=== PATIENT | male | born 1985 | race Caucasian/White ===

== ENCOUNTER 2016-08-25 19:20 | Emergency (ER) | payer OTHER ==
[~2016-08-25] VITALS: Ht 177.8 cm; Wt 63.5 kg
[2016-08-25 19:39] VITALS: BP 143/82
[2016-08-25 19:57] LABS: ABSOLUTE BASOPHIL COUNT 0 /CUMM (0.0-0.2); ABSOLUTE EOSINOPHIL COUNT 0.1 /CUMM (0.0-0.7); ABSOLUTE GRANULOCYTE CT 7.3 /CUMM (1.4-6.5); ABSOLUTE LYMPH COUNT 1.8 /CUMM (1.2-3.4); ABSOLUTE MONOCYTE COUNT 1.1 /CUMM (0.10-0.60); BASOPHIL % 0.3 % (0.0-2.0); EOSINOPHIL % 0.6 % (0-5); HEMATOCRIT 45.3 % (42-52); MEAN CORPUSCULAR HGB 28.7 PG (27.0-31.0); MEAN CORPUSCULAR HGB CONC 33.8 G/DL (33.0-37.0); MEAN PLATELET VOLUME 9.9 FL (7.4-10.4); PLATELET COUNT 221 /CUMM (130-400); RBC DISTRIBUTION WIDTH 13.8 % (11.5-14.5); RED BLOOD CELL CT 5.33 /CUMM (4.70-6.10); WHITE BLOOD CELL COUNT 10.3 /CUMM (4.8-10.8)
--- NOTE | 2016-08-25 21:01 | ED GENERAL ADULT ---
History of Present Illness General Chief Complaint: General Adult Stated Complaint: WEAK,NAUSEA, SLEEPING ALL DAY Source: patient, family Exam Limitations: no limitations Vital Signs & Intake/Output Vital Signs & Intake/Output Vital Signs Date Time Temp Pulse Resp B/P B/P Pulse O2 O2 Flow FiO2 Mean Ox Delivery Rate 08/25 1939 98.8 92 16 143/82 97 Room Air ED Intake and Output 08/26 0000 08/25 1200 Intake Total 1000 Output Total Balance 1000 Intake, IV 1000 Patient 140 lb Weight Weight Reported by Patient Measurement Method Allergies Coded Allergies: NO KNOWN ALLERGIES (03/16/11) Reconcile Medications Amoxicillin 500 MG TABLET 1 TAB PO TID pharyngitis Triage Note: TRIAGE: FEELING RUN DOWN AND FATIGUED X3 DAYS AND DECREASED APPETITE. DENIES N/V/D AND DENIES SYMPTOMS. DENIES PSYCHOSOCIAL STRESSORS OR CHANGES IN ROUTINE. AFEBRILE SENT FROM TRIAGE Triage Nurses Notes Reviewed? yes Onset: Abrupt Duration: day(s):, week(s): (2-3), constant, continues in ED Timing: single episode today Severity: mild, moderate Severity Numbers: 4 No Modifying Factors: none HPI: 31-year-old male with no sig past medical history presents complaining of fatigue, nausea, and sore throat for the past 2 or 3 days. Patient reports that pain is worse swallowing but he is tolerating some fluids. He reports that his appetite has been decreasing the past few days due to nausea. Not been eating or drinking other than coffee. Pain is rated as a 4 out of 10 and is worse with swallowing. No other associated symptoms or sick contacts. No recent travel or recent antibiotic use. He denies any abdominal pain, fevers, back pain, urinary symptoms, coughing, shortness of breath, chest pain, rashes, tick bites or shortness of breath. He has not taken any medicine for the pain. (ETTA TURNER PA-C) Past History Travel History Traveled to [place] past 21 day No Medical History Any Pertinent Medical History? see below for history Neurological: NONE EENT: NONE Cardiovascular: NONE Respiratory: NONE Gastrointestinal: NONE Hepatic: NONE Renal: NONE Musculoskeletal: NONE Psychiatric: NONE Endocrine: NONE Blood Disorders: NONE Cancer(s): NONE Surgical History Surgical History: none Psychosocial History What is your primary language Kyrgyz Tobacco Use: Current Daily Use Daily Tobacco Use Amount/Type: Smokeless tobacco daily ETOH Use: denies use Illicit Drug Use: denies illicit drug use Family History Hx Contributory? Yes (ETTA TURNER PA-C) Review of Systems Review of Systems Constitutional: Reports: see HPI, malaise, weakness. EENTM: Reports: see HPI, throat pain. Respiratory: Reports: no symptoms. Cardiovascular: Reports: no symptoms. GI: Reports: see HPI, nausea. Genitourinary: Reports: no symptoms. Musculoskeletal: Reports: no symptoms. Skin: Reports: no symptoms. Neurological/Psychological: Reports: no symptoms. Hematologic/Endocrine: Reports: no symptoms. Immunologic/Allergic: Reports: no symptoms. All Other Systems: Reviewed and Negative (ETTA TURNER PA-C) Physical Exam Physical Exam General Appearance: well developed/nourished, no apparent distress, alert, awake , anxious Head: atraumatic, normal appearance Eyes: Bilateral: normal appearance, PERRL, EOMI. Ears, Nose, Throat: normal ENT inspection, hearing grossly normal, pharyngeal erythema, tonsillar exudate Neck: normal inspection, supple, full range of motion, no midline tenderness Respiratory: normal breath sounds, chest non-tender, no respiratory distress, lungs clear Cardiovascular: regular rate/rhythm, normal peripheral pulses Peripheral Pulses: 2+ dorsalis pedis (R), 2+ dorsalis pedis (L) Gastrointestinal: normal bowel sounds, soft, non-tender, no organomegaly Back: normal inspection, normal range of motion, no vertebral tenderness Extremities: normal inspection, normal capillary refill, normal range of motion, no edema Neurologic/Psych: no motor/sensory deficits, awake, alert, oriented x 3, normal gait, normal mood/affect Reflexes: 2+: knee (R), knee (L). Skin: intact, normal color, warm/dry Lymphatic: no anterior cervical tomy Core Measures ACS in differential dx? No CVA/TIA Diagnosis: No Severe Sepsis Present: No Septic Shock Present: No (ETTA TURNER PA-C) Progress Differential Diagnoses I considered the following diagnoses in my evaluation of the patient: [Strep throat, Lyme disease, mono, influenza, viral gastroenteritis, viral upper respiratory infection, or tonsillar abscess] Plan of Care: Orders Procedure Date/time Status THROAT CULTURE W/QUICK STREP 08/25 2105 Active URINALYSIS 08/25 2105 Active MONOSPOT TEST 08/25 2105 Active LYME TITRE 08/25 2105 Active THYROID STIMULATING HORMONE 08/25 1940 Complete FREE T4 08/25 1940 Complete COMPREHENSIVE METABOLIC PANEL 08/25 1940 Complete CBC WITHOUT DIFFERENTIAL 08/25 1940 Complete Laboratory Tests 08/25/162119: Lyme Disease Antibody Pending, Infectious Mathews Titer NEGATIVE 08/25/161943: Anion Gap 12, Estimated GFR > 60, BUN/Creatinine Ratio 7.7, Glucose 129 H, Calcium 9.5, Total Bilirubin 1.2, AST 21, ALT 44, Alkaline Phosphatase 100, Total Protein 7.5, Albumin 4.4, Globulin 3.1, Albumin/Globulin Ratio 1.4, TSH 1.130, Free T4 1.20, CBC w Diff NO MAN DIFF REQ, RBC 5.33, MCV 85.0, MCH 28.7, RDW 13.8, MPV 9.9, Gran % 71.0, Lymphocytes % 17.7 L, Monocytes % 10.4 H, Eosinophils % 0.6, Basophils % 0.3, Absolute Granulocytes 7.3 H, Absolute Lymphocytes 1.8, Absolute Monocytes 1.1 H, Absolute Eosinophils 0.1, Absolute Basophils 0, PUBS MCHC 33.8 Patient's throat appears infected with erythema and exudate on the right tonsil. Rapid strep and mono ordered. Patient will be given IV Toradol and IV Zofran and a liter of normal saline. Basic blood work will be drawn and will follow up on results. He is nontoxic appearing. He will likely need abx for treatment of a throat infection. 10:14 PM labs are back sodium is 136. Creatinine is 1.3. Patient will be given another liter of normal saline. He is feeling better after Toradol and Zofran. Otherwise blood work is within normal limits. He will be treated with amoxicillin 500 mg twice a day for 10 days for bacterial pharyngitis. He has an appointment on Saturday with his primary care doctor. Discussed all results of today's visit with the patient and family. He is afebrile and nontoxic appearing at discharge and agrees the plan. (JOHNNY GREENBERG,ETTA) Initial ED EKG: none (JOHNNY GREENBERG,ETTA) Departure Departure Disposition: HOME OR SELF CARE Condition: Stable Clinical Impression Primary Impression: Sore throat Referrals: PATIENT HAS NO PRIMARY CARE DR (PCP/Family) Additional Instructions: Rest and drink plenty of fluids. Gargle saltwater, drink warm tea, use throat lozenges and Tylenol or ibuprofen to soothe your throat. Take antibiotics as directed for the full course and take a probiotic to replace healthy bacteria. follow-up with your primary care doctor this coming week to review all results of today's visit. Return to the emergency department with any concerns. Please go over all results of today's visit with your primary care doctor. Contact your primary care doctor to let them know you were here in the emergency room. There may be nonspecific findings which may not be related to your visit today here in the emergency room but may require further evaluation and chronic monitoring by your primary care doctor. If you had a laceration today the chance of foreign body always remains. You should follow-up with your primary care doctor for recheck in 3-5 days for a wound check. If you had an x-ray done there is a chance that a fracture could have been missed on initial read and you should follow-up with your primary care doctor for repeat x-rays if symptoms persist. If your blood pressure was elevated here in the emergency room please have rechecked by her primary care doctor within the next 48 hours by your primary care doctor. If you were prescribed a narcotic here in the emergency room or any type of controlled substances you're not allowed to drive while taking this medication or operate any type of heavy machinery. Narcotics can make you feel lightheaded dizziness nausea and can cause constipation. You may need to chart picker a stool softener. Thank you for choosing [facility] emergency room. Please return to the emergency room immediately if you have any other concerns worsening of symptoms. Departure Forms: Customer Survey General Discharge Information Prescriptions: Current Visit Scripts Amoxicillin 1 TAB PO TID #20 TAB (ETTA TURNER PA-C) PA/HELIARC WELDER Co-Sign Statement Statement: ED Attending supervision documentation- [] I saw and evaluated the patient. I have also reviewed all the pertinent lab results and diagnostic results. I agree with the findings and the plan of care as documented in the PA's/HELIARC WELDER's documentation. [X] I have reviewed the ED Record and agree with the PA's/HELIARC WELDER's documentation. [] Additions or exceptions (if any) to the PAs/HELIARC WELDER's note and plan are summarized below: [] (MADHURI WISDOM,AHSAN Jeronimo) Critical Care Note Critical Care Note Critical Care Time: non-applicable (JOHNNY GREENBERG,ETTA)
[2016-08-25] MEDS ORDERED: AMOXICILLIN500 M3 PO (22:36)
== END 2016-08-25 22:55 ==
LOC: ERH 19:20
PROVIDERS: Emergency Medicine
DX: J02.9 Acute pharyngitis, unspecified (principal); Z72.0 Tobacco use
CPT/HCPCS: 86618; 96361; 96374; 96375; J1885; J2405